=== PATIENT | male | born 1965 | race Caucasian/White ===

== ENCOUNTER 2023-06-19 12:54 | Day surgery (SDC) | payer BC ==
[2023-06-19] VITALS (8 sets, daily range): BP systolic 145–177; BP diastolic 90–120; PULSE 74–86; RESP 12–16; TEMP 98.2; O2SAT 94–96
[~2023-06-19] VITALS: Ht 185.4 cm; Wt 146.4 kg
[2023-06-19] MEDS ORDERED: CHLO25TA10 PO (13:22)
[2023-06-19] MEDS ORDERED: FURO20TA4 PO (13:22)
[2023-06-19] MEDS ORDERED: TRAM50TA2 PO (13:23)
[2023-06-19] MEDS ORDERED: DICL-212 PO (13:23)
[2023-06-19] MEDS ORDERED: GABA-530 PO (13:23)
[2023-06-19] MEDS ORDERED: [UNRECOGNIZED DRUG - OTHER] (13:23)
[2023-06-19] MEDS ORDERED: MULT-1085 PO (13:23)
[2023-06-19] MEDS ORDERED: ATOR10TA70 PO (13:23)
[2023-06-19] MEDS ORDERED: HEALTH (13:23)
[2023-06-19] MEDS ORDERED: METF-900 PO (13:23)
[2023-06-19] MEDS ORDERED: POTA-207 PO (13:23)
[2023-06-19] MEDS ORDERED: GLUC-150 PO (13:23)
[2023-06-19] MEDS ORDERED: LOSA100T58 PO (13:23)
[2023-06-19 13:34] LABS: BASOPHILS # (AUTO) 0.1 X10'3 (0-0.2); BASOPHILS % (AUTO) 0.6 % (0-1); EOSINOPHILS # (AUTO) 0.5 X10'3 (0-0.9); EOSINOPHILS % (AUTO) 4.3 % (0-6); HEMATOCRIT 48.8 % (42.0-52.0); HEMOGLOBIN 16.4 g/dl (14.0-17.9); LYMPHOCYTES # (AUTO) 1.8 X10'3 (1.1-4.8); LYMPHOCYTES % (AUTO) 16.9 % (21-51); MEAN CORPUSCULAR HEMOGLOBIN 31.2 PG (27.0-31.0); MEAN CORPUSCULAR HGB CONC 33.5 g/dL (33.0-36.5); MEAN PLATELET VOLUME 7.9 FL (7.4-10.4); MONOCYTES % (AUTO) 9.1 % (2-12); NEUTROPHILS # (AUTO) 7.3 X10'3 (1.8-7.7); NEUTROPHILS % (AUTO) 69.1 % (42-75); PLATELET COUNT 266 X10'3 (140-440); RED BLOOD COUNT 5.25 X10'6 (4.70-6.10); RED CELL DISTRIBUTION WIDTH 13.8 % (11.5-14.5); WHITE BLOOD COUNT 10.5 X10'3 (4.5-11.0)
[2023-06-19] MEDS: diphenhydrAMINE 25mg capsule PO PRN (13:48)
[2023-06-19] MEDS: LORazepam 0.5 MG tablet PO PRN (13:48)
[2023-06-19] MEDS: normal saline 1,000 ML IV SCH (13:48)
[2023-06-19] MEDS ORDERED: heparin 1,000unit/ml 10ml vial 10 ML ONE (14:00)
[2023-06-19] MEDS ORDERED: LIDOcaine 1% (10mg/ml) 2ml vial ONE (14:00)
[2023-06-19] MEDS ORDERED: fentaNYL/PF 50MCG/1 ML 2ML syringe ONE (14:00)
[2023-06-19] MEDS ORDERED: iohexol 350MG/ML 100ml bottle IV ONE ×2 (14:00→14:50)
[2023-06-19] MEDS ORDERED: midazolam 1 mg/ML 2ml injection ONE ×2 (14:00→14:27)
[2023-06-19] MEDS ORDERED: verapamil 2.5 mg/ml inj IV ONE (14:00)
[2023-06-19 14:07] LABS: CHOL/HDL RATIO 2.5 (0.00-4.99); CHOLESTEROL 196 MG/DL (0-200); HDL CHOLESTEROL 79 MG/DL (35-60); LDL CHOLESTEROL 94 MG/DL (50-100); TRIGLYCERIDES 71 MG/DL (20-135)
[2023-06-19 14:25] LABS: ALBUMIN 4.2 G/DL (3.4-5.0); ANION GAP 11 (8-16); BLOOD UREA NITROGEN 15 MG/DL (7-18); BUN/CREATININE RATIO 17.4 (10.0-20.0); CALCIUM 9.6 MG/DL (8.5-10.1); CHLORIDE 100 MMOL/L (99-107); CREATININE 0.86 MG/DL (0.60-1.10); GLUCOSE 88 MG/DL (70-104); POTASSIUM 3.8 MMOL/L (3.5-5.1); SODIUM 138 MMOL/L (135-145); TOTAL CARBON DIOXIDE 27.2 MMOL/L (24-32); eCRCL 108 ML/MIN; eGFR > 90 ML/MIN
[2023-06-19] MEDS ORDERED: nitroGLYCERIN 500mcg/5mL D5W 5 ML IV ONE (14:29)
[2023-06-19 14:35] LABS: INR 0.9 INR; PROTHROMBIN TIME 10.2 SECONDS (9.0-12.0)
[2023-06-19] MEDS ORDERED: LIDOcaine 1% 30ml preserv. free vial ONE (14:37)
== END 2023-06-19 17:05 | disposition home or self-care (01) ==
LOC: SSTAY O 12:54
PROVIDERS: ATTEND Student in an Organized Health Care Education/Training Program
DX: R94.39 Abnormal result of other cardiovascular function study (principal); I25.82 Chronic total occlusion of coronary artery; I10 Essential (primary) hypertension; E78.00 Pure hypercholesterolemia, unspecified; G47.33 Obstructive sleep apnea (adult) (pediatric); E11.9 Type 2 diabetes mellitus without complications; E66.9 Obesity, unspecified; Z68.41 Body mass index [BMI] 40.0-44.9, adult; Z79.84 Long term (current) use of oral hypoglycemic drugs; Z79.899 Other long term (current) drug therapy; Z79.01 Long term (current) use of anticoagulants
CPT/HCPCS: 36415; 80048; 80061; 82948; 85025; 85610; 93005; 93458; 99152; 99153; J1644; J2250; J3010; J3490; J7030; Q0163; Q9967; A6258; A6402; C1760; C1894

== ENCOUNTER 2024-01-07 05:37 | Observation (INO) | payer BC, SELFPAY ==
[2024-01-01 15:20] LABS: BASOPHILS # (AUTO) 0.1 X10'3 (0-0.2); BASOPHILS % (AUTO) 0.9 % (0-1); EOSINOPHILS # (AUTO) 0.5 X10'3 (0-0.9); EOSINOPHILS % (AUTO) 6.5 % (0-6); LYMPHOCYTES # (AUTO) 1.2 X10'3 (1.1-4.8); LYMPHOCYTES % (AUTO) 17.3 % (21-51); MEAN CORPUSCULAR HEMOGLOBIN 30.6 PG (27.0-31.0); MEAN CORPUSCULAR HGB CONC 33.5 g/dL (33.0-36.5); MEAN CORPUSCULAR VOLUME 91.6 FL (78-98); MEAN PLATELET VOLUME 8.1 FL (7.4-10.4); MONOCYTES % (AUTO) 13.7 % (2-12); NEUTROPHILS # (AUTO) 4.4 X10'3 (1.8-7.7); NEUTROPHILS % (AUTO) 61.6 % (42-75); PRE OP HEMATOCRIT 42.5 % (42.0-52.0); PRE OP HEMOGLOBIN 14.2 g/dL (14.0-17.9); PRE OP PLATELET COUNT 228 X10'3 (140-440); PRE OP WHITE BLOOD COUNT 7.1 10'3 (4.8-10.8); RED BLOOD COUNT 4.65 X10'6 (4.70-6.10); RED CELL DISTRIBUTION WIDTH 13.3 % (11.5-14.5)
[2024-01-01 15:36] LABS: ALBUMIN 3.7 G/DL (3.4-5.0); ALKALINE PHOSPHATASE 93 IU/L (46-116); BLOOD UREA NITROGEN 20 MG/DL (7-18); BUN/CREATININE RATIO 18.5 (10.0-20.0); CALCIUM 8.9 MG/DL (8.5-10.1); CHLORIDE 103 MMOL/L (99-107); CREATININE 1.08 MG/DL (0.60-1.10); PRE OP ALT 59 U/L (30-65); PRE OP ANION GAP 7 (8-16); PRE OP AST 33 U/L (10-37); PRE OP BILIRUB, TOTAL 0.4 MG/DL (0.0-1.0); PRE OP GLUCOSE 104 MG/DL (70-104); PRE OP POTASSIUM 3.6 MMOL/L (3.4-5.1); PRE OP SODIUM 142 MMOL/L (135-145); TOTAL CARBON DIOXIDE 31.8 MMOL/L (24-32); TOTAL PROTEIN 7.3 G/DL (6.4-8.2); eGFR 70 ML/MIN
[~2024-01-07] VITALS: Ht 185.4 cm; Wt 149.1 kg
[2024-01-07] VITALS (23 sets, daily range): BP systolic 105–149; BP diastolic 65–99; PULSE 60–77; RESP 12–22; TEMP 97.2–98.3; O2SAT 90–99
[2024-01-07] MEDS: DOCUMENT DATE & TIME OF BETA-BLOCKER PO ONE (03:30)
[2024-01-07] MEDS: cefazolin 2gm/D5W 100mL 100 ML IV ONE (05:30)
[~2024-01-07 05:37] MED LIST: AMLO-381 PO; ATOR10TA70 PO; CENTRUM MVI; CHLO25TA10 PO; DICL-212 PO; FURO40TA4 PO; GABA-530 PO; METF-900 PO; METO-395 PO; POTA-207 PO
[2024-01-07] MEDS: famotidine 20mg tablet PO ONE (06:36)
[2024-01-07] MEDS: tranexamic acid 650mg tablet PO ONE (06:36)
[2024-01-07] MEDS: vancomycin/NS 1 GM in NS 250 ML IV ONE (06:37)
[2024-01-07] MEDS: ringers solution, lacted 1,000 ML IV SCH (06:37)
[2024-01-07] MEDS: ROPIVAcaine 0.5% (5mg/ml) 30ml vial ONE (06:57)
[2024-01-07] MEDS: BUPIVACAINE/MELOXICAM 14 ML VIAL IL ONE ×2 (06:57→08:53)
[2024-01-07] MEDS ORDERED: OXYM30SP26 BOTHNARES (07:06)
[2024-01-07] MEDS ORDERED: fentaNYL/PF 50MCG/1 ML 2ML syringe ONE (07:14)
[2024-01-07] MEDS ORDERED: MIDAZolam 1 MG/ML 5ML VIAL ONE (07:14)
[2024-01-07] MEDS: VANCOMYCIN 1,500MG in normal saline IV soln 300 ML IV ONE (07:15)
[2024-01-07] MEDS: ceFAZolin 3,000 MG in NS 100ml IVPB x1 dose post-op IV ONE (07:15)
[2024-01-07] MEDS ORDERED: BUPIVAcaine/dex-water/PF 7.5 mg/ml 2ml ampul ONE (07:42)
[2024-01-07] MEDS ORDERED: propofol inj 20 ML IV ONE (08:10)
[2024-01-07] MEDS ORDERED: ROPIVAcaine 0.5% (5mg/ml) 30ml vial ONE (08:10)
[2024-01-07] MEDS ORDERED: ePHEDrine 50MG/ML INJ. ONE (08:10)
[2024-01-07] MEDS ORDERED: ondansetron/PF 4mg/2ml inj IV PRN ×2 (09:40→11:00)
[2024-01-07] MEDS ORDERED: proCHLORperazine 10 MG/2 ml inj IV PRN (09:40)
[2024-01-07] MEDS ORDERED: ringers solution, lacted 1,000 ML IV SCH (09:40)
[2024-01-07] MEDS ORDERED: morphine 4 MG/ML inj SYRINge IV PRN (09:40)
[2024-01-07] MEDS ORDERED: labetalol 20mg/4ml (5mg/ml) syringe IV PRN (09:40)
[2024-01-07] MEDS ORDERED: meperidine/PF 25mg/ml syringe IV PRN ×3 (09:40)
[2024-01-07] MEDS ORDERED: enalaprilat dihydrate 2.5mg/2ml vial IV PRN (09:40)
[2024-01-07] MEDS ORDERED: morphine 2 MG/ML inj. syringe IV PRN (09:40)
[2024-01-07] MEDS ORDERED: diphenhydrAMINE 25mg capsule PO PRN ×2 (11:00)
[2024-01-07] MEDS ORDERED: HYDROmorphone 1 mg/ml syringe IV PRN (11:00)
[2024-01-07] MEDS ORDERED: HYDROmorphone inj. 0.5 MG/0.5 ML DISP.SYRIN IV PRN (11:00)
[2024-01-07] MEDS ORDERED: magnesium hydroxide 30ml (MOM) UD suspension PO PRN (11:00)
[2024-01-07] MEDS ORDERED: acetaminophen 325mg tablet PO PRN (11:00)
[2024-01-07] MEDS ORDERED: naloxone 0.4 mg/ml inj IV PRN (11:00)
[2024-01-07] MEDS ORDERED: bisacodyl 10mg suppository rectal RC PRN (11:00)
[2024-01-07] MEDS: oxyCODONE IR 5mg (immed. release) tablet PO PRN ×2 (13:26→18:06)
[2024-01-07] MEDS: ceFAZolin/D5W- 1GM premix 50 ML IV SCH (15:58)
[2024-01-07] MEDS: potassium cl 20mEq in 1/2 NS 1,000 ML IV SCH (15:58)
[2024-01-07] MEDS: acetaminophen 325mg tablet PO SCH (16:01)
[2024-01-07] MEDS: DICLOFENAC 75 MG PO SCH (20:00)
[2024-01-07] MEDS: vancomycin/NS 1 GM ADD-VANTAGE 250 ML IV SCH (20:19)
[2024-01-07] MEDS: furosemide 40mg tablet PO SCH (20:19)
[2024-01-07] MEDS: atorvastatin 10mg tablet PO SCH (20:19)
[2024-01-07] MEDS: gabapentin 100mg capsule PO SCH (20:19)
[2024-01-07] MEDS: sennosides 8.6mg tablet PO SCH (20:19)
[2024-01-07] MEDS: potassium Cl 20 mEq SR tablet PO SCH (20:19)
[2024-01-07] MEDS: METFORMIN ER 500MG PO SCH (20:39)
[2024-01-08 02:00] VITALS: BP 122/79; PULSE 66; RESP 18; TEMP 97.8; O2SAT 96
[2024-01-08 05:40] LABS: BASOPHILS % (AUTO) 0.1 % (0-1); EOSINOPHILS % (AUTO) 0.2 % (0-6); HEMATOCRIT 40.6 % (42.0-52.0); HEMOGLOBIN 13.6 g/dl (14.0-17.9); LYMPHOCYTES # (AUTO) 1.2 X10'3 (1.1-4.8); LYMPHOCYTES % (AUTO) 8.9 % (21-51); MEAN CORPUSCULAR HGB CONC 33.4 g/dL (33.0-36.5); MEAN CORPUSCULAR VOLUME 92.8 FL (78-98); MEAN PLATELET VOLUME 8.2 FL (7.4-10.4); MONOCYTES # (AUTO) 1.1 X10'3 (0-0.9); MONOCYTES % (AUTO) 8.2 % (2-12); NEUTROPHILS # (AUTO) 11.6 X10'3 (1.8-7.7); NEUTROPHILS % (AUTO) 82.6 % (42-75); PLATELET COUNT 245 X10'3 (140-440); RED BLOOD COUNT 4.38 X10'6 (4.70-6.10); RED CELL DISTRIBUTION WIDTH 13.4 % (11.5-14.5)
[2024-01-08 05:45] LABS: ANION GAP 12 (8-16); CHLORIDE 104 MMOL/L (99-107); POTASSIUM 4.1 MMOL/L (3.5-5.1); SODIUM 141 MMOL/L (135-145); TOTAL CARBON DIOXIDE 25.4 MMOL/L (24-32)
[2024-01-08 06:00] VITALS: BP 130/70; PULSE 76; RESP 16; TEMP 98; O2SAT 94
[2024-01-08] MEDS: aspirin 325mg tablet PO SCH (08:23)
[2024-01-08] MEDS: metoprolol succinate 25mg (24-HOUR) SR. Tablet PO SCH (08:24)
[2024-01-08] MEDS: losartan 50mg tablet PO SCH (08:24)
[2024-01-08 08:25] VITALS: RESP 18; O2SAT 96
[2024-01-08] MEDS: amLODIPine 5mg tablet PO SCH (08:25)
[2024-01-08] MEDS: chlorthalidone 25mg tablet PO SCH (08:35)
[2024-01-08 10:30] VITALS: BP 117/77; PULSE 50; RESP 16; TEMP 98.2; O2SAT 91
[2024-01-08 13:20] VITALS: RESP 20
[2024-01-08] MEDS ORDERED: celeCOXIB 100mg capsule PO SCH (20:00)
[2024-01-09] MEDS ORDERED: acetaminophen 325mg tablet PO PRN (18:20)
== END 2024-01-08 16:14 | disposition home or self-care (01) ==
LOC: PAS 05:37 → ORTHO 4S 11:02 → EDSTATUS 11:45 → PAS 12:12 → ORTHO 4S 12:12 → UNDOADMIN 01-08 07:30 → ORTHO 4S 01-08 07:30
PROVIDERS: ADMIT Orthopaedic Surgery; ATTEND Orthopaedic Surgery
DX: M17.12 Unilateral primary osteoarthritis, left knee (principal); G89.29 Other chronic pain; E66.01 Morbid (severe) obesity due to excess calories; I25.2 Old myocardial infarction; I11.0 Hypertensive heart disease with heart failure; I50.9 Heart failure, unspecified; Z68.43 Body mass index [BMI] 50.0-59.9, adult; Z79.899 Other long term (current) drug therapy
CPT/HCPCS: 20985; 27447; 36415; 64447; 80051; 80053; 82948; 83036; 85025; 87081; 96365; 96366; 96367; 96368; 97110; 97116; 97162; C1776; G0378; J0690; J2250; J2704; J2795; J3010; J3370; J3480; J3490; J7040; J7120; A4215; A7000